=== PATIENT | male | born 1985 | race Two or more races ===

== ENCOUNTER 2017-07-05 07:25 | Inpatient (IN) | payer OTHER ==
[2017-07-05] VITALS (12 sets, daily range): BP systolic 105–177; BP diastolic 69–86
[~2017-07-05] VITALS: Ht 180.3 cm; Wt 82.6 kg
[~2017-07-05 07:25] MED LIST: ceFAZolin sod 2 GM in D5W 110 ML IVPB ONE
[2017-07-05] MEDS ORDERED: NKM (08:15)
--- NOTE | 2017-07-05 08:22 | Pre-Procedure Note/Attestation ---
Pre-Procedure Note/Attestation Complete Prior to Procedure Planned Procedure: not applicable Procedure Narrative: Hemilaminotomy foraminotomy decompression Lumbar 45 Microdiscectomy Indications for Procedure Pre-Operative Diagnosis: L45 herniation Attestation I attest that I discussed the nature of the procedure; its benefits; risks and complications; and alternatives (and the risks and benefits of such alternatives ), prior to the procedure, with the patient (or the patient's legal motor vehicle representative). I attest that, if there was a reasonable possibility of needing a blood transfusion, the patient (or the patient's legal motor vehicle representative) was given the [facility] standardized written summary, pursuant to the Khris Jose Daniel Blood Safety Act ([place] Health and Safety Code # 1645, as amended). I attest that I re-evaluated the patient just prior to the surgery and that there has been no change in the patient's H&P, except as documented below: DANISHA GASTON Jul 05, 2017 08:22
--- NOTE | 2017-07-05 08:23 | Brief Operative Note ---
Immediate Post Operative Note Operative Note Chief Complaint: Back and leg pains left sided Pre-op Diagnosis: L45 herniation Procedure: Hemilaminotomy foraminotomy decompression Lumbar 45 Microdiscectomy Post-op Diagnosis: same as pre-op Findings: consistent w/pre-op dx studies Surgeon: Susan Wrapper Off: Harjeet Anesthesiologist: ARABELLA Specimen: none Complications: none Condition: stable Implant(s) used?: DANISHA Watkins Jul 05, 2017 08:23
[2017-07-05] MEDS ORDERED: HYDROcodone/Acetamin 7.5/325 tab ORAL PRN ×2 (08:30)
[2017-07-05] MEDS ORDERED: Naloxone 0.4mg/ml Inj IVP PRN (08:30)
[2017-07-05] MEDS ORDERED: Chloraseptic Spray 20mL Bottle ORAL PRN (08:30)
[2017-07-05] MEDS ORDERED: HYDROmorphone 1mg/ml Carpuject IVP PRN (08:30)
[2017-07-05] MEDS ORDERED: Milk of Magnesia 30ml Ud ORAL PRN (08:30)
[2017-07-05] MEDS ORDERED: Norco 5mg/325mg tab ORAL PRN (08:30)
[2017-07-05] MEDS ORDERED: HYDROmorphone 1mg/ml Carpuject SUBQ PRN (08:30)
[2017-07-05] MEDS ORDERED: Vancomycin 1gm inj IVPB ONE (08:57)
[2017-07-05] MEDS ORDERED: Thrombin 5000 units TOPIC ONE (08:57)
[2017-07-05] MEDS ORDERED: Ropivacaine 5mg/ml Vial 30ml INJ ONE (08:57)
[2017-07-05] MEDS ORDERED: Bacitracin 50000 Units Vial ONE (08:57)
[2017-07-05] MEDS ORDERED: Sterile Water Irrig 1000ml IRRIG ONE (09:00)
[2017-07-05] MEDS ORDERED: Zemuron 50mg/5ml Inj IV ONE (09:00)
[2017-07-05] MEDS ORDERED: LR 1000ml ONE (09:00)
[2017-07-05] MEDS ORDERED: fentaNYL 100 mcg/2 mL IV ONE (09:00)
[2017-07-05] MEDS ORDERED: Propofol 200mg/20ml IV ONE (09:00)
[2017-07-05] MEDS ORDERED: Glycopyrrolate 0.2mg/ml 1ml Vial ONE (09:00)
[2017-07-05] MEDS ORDERED: NS Irrig 1000ml ONE (09:00)
[2017-07-05] MEDS ORDERED: Ketorolac 30mg Inj ONE (09:00)
[2017-07-05] MEDS ORDERED: Succinylcholine 20mg/ml 10ml vial ONE (09:00)
[2017-07-05] MEDS ORDERED: Morphine Sulfate 10mg/ml Inj ONE (09:00)
[2017-07-05] MEDS ORDERED: Neostigmine 1mg/ml 10ml Inj ONE (09:00)
--- NOTE | 2017-07-05 10:18 | Anethesia Preoperative Eval ---
Anesthesia Pre-op PMH/ROS General Date of Evaluation: Jul 05, 2017 Time of Evaluation: 09:08 Anesthesiologist: Reji ASA Score: ASA 2 Mallampati Score Class I : Soft palate, uvula, fauces, pillars visible Class II: Soft palate, uvula, fauces visible Class III: Soft palate, base of uvula visible Class IV: Only hard plate visible Mallampati Classification: Class II Surgeon: Susan Diagnosis: Lumbar radiculopathy Surgical Procedure: L4-L5 laminotomy Anesthesia History: none Family History: no anesthesia problems Allergies: Coded Allergies: No Known Allergies (Unverified , 07/05/17) Medications: see eMAR Past Medical History Cardiovascular: Denies: HTN, CAD, IA, valve dz, arrhythmia, other Pulmonary: Denies: asthma, COPD, SHIVANI, other Gastrointestinal/Genitourinary: Reports: GERD - mild, Denies: CRI, ESRD, other Neurologic/Psychiatric: Reports: other - chronic pain, Denies: dementia, CVA, depression/anxiety, TIA Endocrine: Denies: DM, hypothyroidism, steroids, other HEENT: Denies: cataract (L), cataract (R), glaucoma, [place] (L), [place] (R), other Hematology/Immune: Denies: anemia, DVT, bleeding disorder, other Musculoskeletal/Integumentary: Denies: OA, RA, DJD, DDD, edema, other PMH Narrative: as above PSxH Narrative: none Anesthesia Pre-op Phys. Exam Physician Exam Last Vital Signs Date Time Temp Pulse Resp B/P (MAP) Pulse Ox O2 Delivery O2 Flow Rate FiO2 07/05/17 08:05 98.3 68 19 117/86 98 Room Air Constitutional: NAD Neurologic: CN 2-12 intact Cardiovascular: RRR, no M/R/G Respiratory: CTA Airway Exam Mallampati Score: Class II MO: full Neck: flexible ROM: full Teeth: intact TOYIN VALENZUELA M.D. Jul 05, 2017 10:18
[2017-07-05] MEDS ORDERED: LR 1000ml 1,000 ML IVLG SCH (10:19)
[2017-07-05] MEDS ORDERED: Ketorolac 30mg Inj IV PRN (10:30)
[2017-07-05] MEDS ORDERED: DiphenhydrAMINE 50mg/ml Inj IVP PRN (10:30)
[2017-07-05] MEDS ORDERED: Midazolam 2mg/2ml Inj IVP PRN (10:30)
[2017-07-05] MEDS ORDERED: Meperidine 50mg/ml Inj(FOR RIGORS ONLY) IV PRN ×2 (10:30)
--- NOTE | 2017-07-05 11:05 | Immediate Post-Op Evaluation ---
Immediate Post-Op Evalulation Immediate Post-Op Evalulation Procedure: L4-L5 laminotomy with decompression Date of Evaluation: Jul 05, 2017 Time of Evaluation: 11:04 IV Fluids: 1200 Blood Products: none Estimated Blood Loss: 50 Urinary Output: none Blood Pressure Systolic: 116 Blood Pressure Diastolic: 58 Pulse Rate: 86 Respiratory Rate: 20 O2 Sat by Pulse Oximetry: 99 Temperature (Fahrenheit): 98.2 Pain Score (1-10): 2 Nausea: No Vomiting: No Complications none Patient Status: reacts, patent, extubated, none Hydration Status: adequate TOYIN VALENZUELA M.D. Jul 05, 2017 11:05
[2017-07-05] MEDS: Hydromorphone 0.5mg/0.5ml inj IVP PRN ×3 (11:23→11:57)
[2017-07-05] MEDS ORDERED: ceFAZolin sod 1 GM in D5W 55 ML IV SCH (15:00)
[2017-07-05] MEDS ORDERED: NS w/KCl 20mEq 1,000 ML IV SCH (15:00)
[2017-07-05] MEDS ORDERED: NORCO 10-325 T1 EACH ORAL (17:06)
--- NOTE | 2017-07-05 17:32 | Operative Note - Dictated ---
DATE OF OPERATION: 07/05/2017 SURGEON: Dave Davis M.D., Orthopaedic Spine Surgeon. CUT AND COVER LINE WORKER: DANNY Sahu. ANESTHESIOLOGIST: Darshan Mendoza M.D. ANESTHESIA: General endotracheal anesthesia. PREOPERATIVE DIAGNOSES: 1. Intractable back pain. 2. Intractable leg pain. 3. Worsening radiculopathy. 4. Weakness. 5. Herniated nucleus pulposus, L4-L5 herniation. 6. Neural foraminal stenosis, L4-L5. POSTOPERATIVE DIAGNOSES: 1. Intractable back pain. 2. Intractable leg pain. 3. Worsening radiculopathy. 4. Weakness. 5. Herniated nucleus pulposus, L4-L5 herniation. 6. Neural foraminal stenosis, L4-L5. PROCEDURES PERFORMED: 1. Left-sided L4-L5 microdiscectomy. 2. L4-L5 hemilaminotomy and foraminotomy was done bilaterally. 3. L4-L5 neural foraminotomy through a transpedicular intraforaminal approach. 4. Use of intraoperative microscope. 5. Supervision and interpretation of intraoperative fluoroscopy. 6. Supervision and interpretation of somatosensory-evoked potential and free running EMG monitoring. ESTIMATED BLOOD LOSS: Less than 100 mL. COMPLICATIONS: None. INDICATIONS FOR THE PROCEDURE: Zach presents for intractable back pain and radiculopathy. The patient tried and failed a prolonged course of conservative management, including but not limited to chiropractic therapy, physical therapy, nonsteroidal anti-inflammatory drugs, medication, ice packs as well as epidural injection. Despite these therapies, the patient still developed recalcitrant pain and elected for definitive management in the form of left-sided L4-L5 microdiscectomy, L4-L5 hemilaminotomy and foraminotomy was done bilaterally, L4-L5 neural foraminotomy through a transpedicular intraforaminal approach. We had a long discussion with him regarding definitive surgical treatment options. The patient's MRI demonstrated herniated nucleus pulposus, L4-L5 herniation, neural foraminal stenosis, L4-L5, and as a result, I felt he would benefit from the discectomy as well as neural foraminotomy at this level. We had a long discussion with the patient regarding the risks, alternatives, and benefits of surgery. Our description of the risks included a discussion in person as well as a signed consent which detailed all pertinent risks and the procedure itself. Briefly, our discussion included but was not limited to infection, bleeding, pseudarthrosis, spinal cord injury, neurovascular injury, dural tear, CSF leak, neuropathy, paralysis, permanent weakness/drop foot, paresthesias, blindness, palsy, and weakness. The patient understood there may be a need for revision surgery or additional procedures. Approach-related complications including dysphonia, dysphagia, blindness, permanent vocal cord and neural injury, hematoma, swallowing and breathing difficulty. Medical complications including liver, kidney, shock, and cardiopulmonary failure. Anesthesia complications including , swelling. Damage to the musculature, larynx (voice injury or loss), esophagus (throat), trachea, blood vessels and muscles (muscular sprain) and lungs (pneumothorax) during this surgical procedure. Injury to deeper structures may be temporary or permanent. The patient understood these and elected to proceed. A written and verbal consent was given. We discussed the pros and cons of all the alternatives. We discussed the uncertainties associated with the decision. Afterwards, I assessed the patient's understanding and explored their preferences. All questions were answered and no guarantees were given. Medical clearance was obtained prior to surgery. OPERATIVE FINDINGS: A broad-based disc herniation at L4-L5, which encroached on the thecal sac and neural foraminal elements therein. This disc was acute in nature and not calcified. It was mobile and free floating and resected easily. There was also neural foraminal stenosis at L4-L5. DESCRIPTION OF PROCEDURE: Under the benefit of general endotracheal anesthesia and with the assistance of the entire operative team, the patient was moved from the [facility] onto the operative table in the prone position on a Lucien frame. The head was secured and positioned appropriately. Bilateral arms were secured with Gel Pads and foam and all bony prominences were padded. The bilateral lower extremity SCD and MARTIN hose were placed for DVT prophylaxis. A surgical timeout was called which corroborated our planned procedure. Preoperative antibiotics were administered within 30 minutes of the incision for prophylaxis. Decadron was given for preoperative steroids. Using lateral radiography, the operative levels were delineated. An incision was marked based on our interpretation of lateral radiography and afterwards, the body was prepped and draped in the usual sterile manner. The family was notified that we were ready to commence surgery and were called in the waiting room hourly for updates. An incision was based on our lateral fluoroscopic image to center the incision at the L5-S1 interspace. The wound was prepped and draped in the usual sterile fashion. Using a scalpel, a midline incision was taken down through the skin and subcutaneous tissues until the overlying hemilamina of L4-L5 were visualized. Next, using meticulous hemostasis, hemilamotomies were dissected and retractors were placed. Using a [employer] dental, we confirmed placement at the L4-L5 interspace. We next turned our attention to our decompression. A standard hemilaminotomy and foraminotomy was performed at each level in standard fashion using a Midas-Ankush type AM8 drill bit, straight and angled curettage, and Kerrison 4 rongeurs until the lateral thecal sac margin and traversing nerve root was visualized. All remainders of the ligamentum flavum and lateral bony margins were resected in total with angled curettage and Kerrison 4 rongeurs until the lateral thecal sac margin and traversing nerve root was visualized and decompressed. We next turned our attention toward our L4-L5 microdiscectomy on the left side. A Hartwick 4 was used to gently mobilize the thecal sac medially and this was held retracted with a bayonet nerve root retractor. It was at this point that we noted a large broad-based disc protrusion with encroachment dorsally on the thecal sac, neural foraminal contents. A bayonet nerve root retractor was then placed carefully to retract the thecal sac and a discectomy was performed using a combination of a long-handled 15 blade scalpel, downgoing and straight pituitaries, and downgoing curettage. Afterward, the disc space was irrigated twice with 20 mL of antibiotic-impregnated saline. All loose and free-floating disc fragments were carefully resected with a narrow pituitary. Having been satisfied with our decompression after our discectomy of all neural elements, we next turned our attention to our neural foraminoplasty/foraminotomy. This was performed through the use of kerrison rongeurs and pituitaries which allowed for re-creation of the neural foraminal arch at L4-L5. Afterwards, hemostasis was obtained with 60 mL of antibiotic-impregnated saline followed by FloSeal and Gelfoam. After sponge and needle count were found to be correct, next we turned our attention to closure. Closure consisted of 1-0 Vicryl in standard interrupted fashion. Zosyn was placed deep to the fascia and superficial to the fascia for antibiotic prophylaxis. Skin closure was performed with 2-0 Vicryl in interrupted fashion followed by running Monocryl for the skin. Final dressings consisted of Dermabond for the superficial skin, Telfa, and Tegaderm. The patient tolerated the procedure well. The patient was extubated after the conclusion of surgery without incident. We discussed the findings of the surgery with the family upon completion of the case. At this point, the patient will be transferred to the spine floor for further observation. Dave Davis M.D. DR: Stefano JOB#: [id number] CC: MIKE
--- NOTE | 2017-07-05 17:48 | Discharge Summary ---
DATE OF ADMISSION: 07/05/2017 DATE OF DISCHARGE: 07/05/2017 PROCEDURE PERFORMED DURING ADMISSION: L4-L5 bilateral hemilaminotomy and foraminotomy, left-sided L4-L5 microdiscectomy. REASON FOR ADMISSION: Herniated nucleus pulposus, L4-L5. HOSPITAL COURSE/TREATMENT RENDERED: DISCHARGE PHYSICAL EXAMINATION: 1. The patient was ambulating with and without the assistance of physical therapy. 2. Prior to discharge home, incision was clean and dry with minimal swelling. 3. Follows commands. 4. Alert and oriented. 5. Mcqueen discontinued, voiding. 6. Incentive spirometer at bedside. 7. IVF Hep-Locked. 8. Motor demonstrates expected postoperative bulk and tone. Moves biceps, triceps, and deltoid musculature on command. Moves hip flexors, quadriceps, tibialis anterior, EHL, gastrocsoleus musculature on command as well. TREATMENT RENDERED: 1. Daily nursing care. 2. Physical therapy. 3. Occupational therapy. 4. Intravenous medications. 5. Oral medications. 6. Daily postoperative examinations by spine surgery team. CONDITION OF PATIENT ON DISCHARGE: The condition on discharge is stable for discharge to home. DISCHARGE INSTRUCTIONS: Our specific instructions relating to physical activity, medications, diet, and follow-up care are detailed in our standard operative folder and were given to this patient prior to surgery. We will however summarize these briefly as stated below. Regarding physical activity, we would like the patient to limit their flexion, extension, and rotation. We also require a limitation on their bending, lifting, and twisting. All medication has been called in prior to surgery to their pharmacy of choice. They can resume their regular diet once tolerated. We would like them to shower and limit soaking the wound in a tub/Jacuzzi/the ocean for a period of one month or until the incision is completely healed. We will have them follow up in our office in three weeks' time for their regularly scheduled appointment. They understand to call our office tomorrow to schedule the time for their three-week followup appointment. The patient will notify us should he experience any increase in the severity of pain, redness/swelling/drainage from the incision. Dave Davis M.D. DR: Stefano JOB#: [id number] CC:
[2017-07-05] MEDS ORDERED: Dexamethasone 4mg/ml vial IVP SCH (18:00)
[2017-07-05] MEDS ORDERED: Tubing IV Secondary IV ONE (18:09)
--- NOTE | 2017-07-05 18:41 | 48 Hour Post Anesthesia Eval ---
Post Anesthesia Evaluation Procedure: L4-L5 laminotomy with decompression Date of Evaluation: Jul 07, 2017 Time of Evaluation: 09:00 Blood Pressure Systolic: 177 0: 85 Pulse Rate: 75 Respiratory Rate: 17 Temperature (Fahrenheit): 98 O2 Sat by Pulse Oximetry: 99 Airway: patent Nausea: No Vomiting: No Pain Intensity: 0 Hydration Status: adequate Mental Status/LOC: patient returned to baseline Post-Anesthesia Complications: none Follow-up care needed: patient intructions given Kirk Hightower M.D. Jul 05, 2017 18:41
--- NOTE | 2017-07-06 09:59 | Diagnostic Imaging Report ---
Indication: Reason For Exam: PAIN Technique: XRAY L Spine 1V intraoperative. One image provided. Study performed by Dr. Davis including fluoroscopy. Dose: Fluoroscopy time: 3.2 seconds. Cumulative dose: 1.03 mGy Comparison: None. Findings: Single view demonstrates a surgical instrument posterior to L4-5. Impression: Localization of L4-5.
== END 2017-07-05 18:10 | disposition home or self-care (01) | DRG 520 ==
LOC: SDSOVERFLO 07:25 → 3E 12:40
PROC: 00NY0ZZ Release Lumbar Spinal Cord, Open Approach (ICD-10-PCS; principal; 2017-07-05 10:30)
PROC: 0SB20ZZ Excision of Lumbar Vertebral Disc, Open Approach (ICD-10-PCS; principal; 2017-07-05 10:30)
PROC: 4A11X4G Monitoring of Peripheral Nervous Electrical Activity, Intraoperative, External Approach (ICD-10-PCS; principal; 2017-07-05 10:30)
DX: M51.16 Intervertebral disc disorders with radiculopathy, lumbar region (principal); K21.9 Gastro-esophageal reflux disease without esophagitis; M48.061 Spinal stenosis, lumbar region without neurogenic claudication
CPT/HCPCS: 36415; 72020; 76001; 86850; 86900; 86901; 87081; 94003; 94150; J2405; J2710